=== PATIENT | male | born 1985 | race Caucasian/White ===

== ENCOUNTER 2025-02-09 20:33 | Emergency (ER) | payer MEDICAID ==
[~2025-02-09] VITALS: Ht 177.8 cm; Wt 108.9 kg
[2025-02-09 21:14] LABS: BASOPHILS # (AUTO) 0.1 K/uL (0.0-0.2); BASOPHILS % (AUTO) 0.8 % (0.0-2.0); EOSINOPHILS # (AUTO) 0.1 K/uL (0.0-0.7); EOSINOPHILS % (AUTO) 0.7 % (0.0-6.0); HEMATOCRIT 45 % (39-51); HEMOGLOBIN 15.2 g/dL (13.5-17.5); LYMPHOCYTES # (AUTO) 3.9 K/uL (0.8-4.8); LYMPHOCYTES % (AUTO) 25.7 % (20.0-44.0); MEAN CORPUSCULAR HEMOGLOBIN 28 PG (26.0-33.0); MEAN CORPUSCULAR HGB CONC 34 g/dl (31.0-36.0); MEAN CORPUSCULAR VOLUME 84 fL (80-96); MONOCYTES # (AUTO) 1.4 K/uL (0.1-1.30); MONOCYTES % (AUTO) 9.3 % (2.0-12.0); NEUTROPHILS # (AUTO) 9.5 K/uL (1.8-8.9); NEUTROPHILS % (AUTO) 63.5 % (43.0-81.0); PLATELET COUNT (AUTO) 317 K/uL (150-450); RED BLOOD CELL COUNT(AUTO) 5.33 MIL/uL (4.5-6.0); RED CELL DISTRIBUTION WIDTH 14.1 % (11.5-15.0)
[2025-02-09 21:24] LABS: CALCIUM, SERUM 9.6 mg/dL (8.5-10.1); CARBON DIOXIDE 25 mmol/L (21-32); CHLORIDE 101 mmol/L (98-107); CREATININE 1.2 mg/dL (0.6-1.3); GLUCOSE 98 mg/dL (74-106); POTASSIUM 3.9 mmol/L (3.5-5.1); SODIUM SERUM 139 mmol/L (136-145); UREA NITROGEN, BLOOD 24 mg/dL (7-18)
[2025-02-09] MEDS ORDERED: OLANZAPINE 10 MG VIAL IM ONE (21:28)
[2025-02-09] MEDS ORDERED: LORAZEPAM INJ 2 MG/ML VIAL ONE (21:28)
[2025-02-09 21:31] LABS: ALANINE AMINOTRANSFERASE 33 U/L (12-78); ALBUMIN 4.2 g/dL (3.4-5.0); ALCOHOL, BLOOD < 3 mg/dL (0-10); ALKALINE PHOSPHATASE 107 U/L (46-116); ASPARTATE AMINOTRANSFERASE 13 U/L (15-37); BILIRUBIN,DIRECT 0.1 mg/dL (0.0-0.2); BILIRUBIN,TOTAL 0.4 mg/dL (0.2-1.0); SALICYLATE 3.6 mg/dL (2.8-20.0); TOTAL PROTEIN, SERUM 8.3 g/dL (6.4-8.2)
[2025-02-09 21:32] LABS: ACETAMINOPHEN <10 ug/ml (10-30)
[2025-02-09 21:38] LABS: AMPHETAMINE, URINE NEGATIVE (NEGATIVE); BARBITURATE, URINE NEGATIVE (NEGATIVE); BENZODIAZEPINE, URINE NEGATIVE (NEGATIVE); CANNABINOID, URINE NEGATIVE (NEGATIVE); COCCAINE, URINE NEGATIVE (NEGATIVE); OPIATE, URINE NEGATIVE (NEGATIVE); PHENCYCLIDINE SCREEN,URINE NEGATIVE (NEGATIVE)
[2025-02-09 21:40] LABS: APPEARANCE,URINE CLEAR (CLEAR); BILIRUBIN,URINE NEGATIVE (NEGATIVE); BLOOD, URINE TRACE-INTA Ery/uL (NEGATIVE); COLOR,URINE YELLOW (YELLOW); KETONES,URINE TRACE mg/dL (NEGATIVE); LEUKOCYTE ESTERASE ,URINE NEGATIVE (NEGATIVE); NITRITE, URINE NEGATIVE (NEGATIVE); PROTEIN,URINE TRACE mg/dl (NEGATIVE); UGLUCOSE NEGATIVE (NEGATIVE); UROBILINOGEN,URINE 0.2 EU/dL (0.2)
[2025-02-09] MEDS: LORAZEPAM INJ 2 MG/ML VIAL IM ONE (21:45)
[2025-02-09] MEDS: OLANZAPINE 10 MG VIAL IM ONE (21:46)
[2025-02-09 22:01] LABS: ADD URINE CULTURE NO; BACTERIA,URINE Few /HPF (None Seen); RBC,URINE 0-2 /HPF (0-2); SQUAMOUS EPITHELIAL CELL,UR None Seen /HPF (None Seen)
[2025-02-09 22:02] LABS: MUCUS,URINE Few /LPF (None Seen); SPERM,URINE Moderate /HPF (None Seen)
[2025-02-09] MEDS: IV NS 0.9% 1,000 ML BAG IV ONE (22:34)
[2025-02-10 02:14] VITALS: BP 132/81; TEMP 99.8; O2SAT 97
[2025-02-10] MEDS ORDERED: OLAN10TA3 PO (11:30)
== END 2025-02-10 02:15 | disposition home or self-care (01) ==
LOC: ER 20:43
DX: F23 Brief psychotic disorder (principal); R00.2 Palpitations; D72.829 Elevated white blood cell count, unspecified; E86.0 Dehydration; F25.0 Schizoaffective disorder, bipolar type; I10 Essential (primary) hypertension; R00.0 Tachycardia, unspecified; F19.10 Other psychoactive substance abuse, uncomplicated; Z86.59 Personal history of other mental and behavioral disorders; Z20.822 Contact with and (suspected) exposure to COVID-19; Z59.00 Homelessness unspecified; Z79.899 Other long term (current) drug therapy
CPT/HCPCS: 99285; 96372; 96360; 93005; 71045; 85025; 80048; 80076; 81001; 36415; 84443; 84484; 87426; 80143; 80320; 80307; J2060; J7030; J3490; G0480

== ENCOUNTER 2025-02-10 08:34 | Emergency (ER) | payer MEDICAID ==
[~2025-02-10] VITALS: Ht 177.8 cm; Wt 108.9 kg
[2025-02-10] MEDS ORDERED: OLANZAPINE 5 MG TABLET ONE (09:17)
[2025-02-10] MEDS: OLANZAPINE 5 MG TABLET PO ONE (09:20)
[2025-02-10] MEDS ORDERED: OLAN10TA3 PO (11:30)
[2025-02-10 12:42] VITALS: BP 144/77; TEMP 98.1; O2SAT 99
== END 2025-02-10 12:05 | disposition home or self-care (01) ==
LOC: ER 08:42
DX: F60.0 Paranoid personality disorder (principal); E86.0 Dehydration; F25.9 Schizoaffective disorder, unspecified; F31.9 Bipolar disorder, unspecified; F41.9 Anxiety disorder, unspecified; I10 Essential (primary) hypertension; F19.10 Other psychoactive substance abuse, uncomplicated